=== PATIENT | male | born 1960 | race Caucasian/White ===

== ENCOUNTER 2018-03-26 08:58 | Observation (INO) ==
[2018-03-26] MEDS ORDERED: Td (TENIVAC) Vaccine 0.5 ML VIAL IM ONE (09:21)
[2018-03-26] MEDS ORDERED: Ampicillin/Sulbactam 3,000 MG in D5% in Water (Mini-Bag+) 100 ML IVPB ONE (09:21)
[2018-03-26] MEDS ORDERED: Vancomycin 1,000 MG VIAL IVPB ONE (09:21)
[2018-03-26] MEDS ORDERED: Ibuprofen 600 MG TABLET PO ONE (09:21)
[2018-03-26 09:55] LABS: Basophils % 0.7 %; Eosinophils # 0.3 K/mcL (0.0-0.6); Eosinophils % 4.5 %; Hematocrit 38.3 % (37.5-50.1); Hemoglobin 13.6 g/dL (12.9-16.9); Immature Granulocytes % 0.5 % (0-4); Lymphocytes # 1.3 K/mcL (0.6-4.6); Lymphocytes % 22.4 %; Mean Corpuscular HGB Conc 35.5 g/dL (31.6-35.5); Mean Corpuscular Hemoglobin 32.5 pg (28.0-33.3); Mean Corpuscular Volume 91.6 fL (83.0-100.0); Mean Platelet Volume 8.9 fL (9.4-12.4); Monocytes # 0.7 K/mcL (0.0-1.3); Monocytes % 11.7 %; Neutrophils # 3.4 K/mcL (1.6-8.9); Platelet Count 154 K/mcL (140-400); Red Blood Count 4.18 M/mcL (4.19-5.50); Red Cell Distribution Width 13.1 % (11.5-14.5); Segmented Neutrophils % 60.2 %
[2018-03-26] MEDS ORDERED: Vancomycin 1,500 MG in D5% in Water 250 ML IVPB ONE (10:00)
--- NOTE | 2018-03-26 10:03 | Emergency Department Note ---
Disposition Clinical Impression: Cellulitis Qualifiers: Site of cellulitis: extremity Site of cellulitis of extremity: lower extremity Laterality: left Qualified Code(s): L03.116 - Cellulitis of left lower limb Disposition: Admitted As Inpatient Condition: Undetermined Referrals: Ant Reyna MD [Primary Care Provider] - Forms: ED Satisfaction Letter Time of Disposition: 10:40 (accepted by Dr Arambula) Skin/Abscess/FB HPI Chief complaint: ED Skin/Abscess/Foreign Body Stated complaint: WOUND LT LEG S/P SURGERY Source: patient Limitations: no limitations HPI Narrative: Patient is a pleasant 57-year-old male with past medical history significant for HTN, PAD, CAD, bilateral lower extremities claudication, Dyslipidemia, tobacco use and COPD who is presenting to [facility] Emergency Room with a chief complaint off progressive left lower extremities wound. Patient states that he was injured about a month ago when he bumped his leg in the bed and since then he has unhealed wound. He was seen by vascular at [facility] on March 17 and had angioplasty. Today patient is presenting because he is complaining of progressive pain and that the wound open wound is leaking serous anginous fluid with pus. He states that the wound is getting worse. Patient denies any fever, chills or night sweats. Pt also denies any eye pain or visual disturbances. There is no sore throat, nasal drainages or facial congestion. There is no chest pain, palpitations or racing heart. Pt also denies any shortness of breath, cough or chest congestion. There is no abdominal pain, nausea, vomiting or diarrhea. There is no urgency, frequency or dysuria. Patient also denies any rash, edema or pruritus. There is no neurological manifestations, no headache, no vertigo or weakness. The patient also denies any anxiety, depression, hallucinations and has no homicidal or suicidal ideations. There is no polyuria, polydipsia or recent weight change. Review of other systems is otherwise negative except above. Pt Subjective Complaint: lesion Onset (ago): month(s) Tetanus Up to Date: unsure Location: LLE Severity: severe Severity scale (1-10): 10 Quality: sharp Consistency: Worsening Improves with: none Worsens with: movement Home Medications Medication Instructions Recorded Confirmed Albuterol Sulfate [Proair Hfa] 2 puff IH Q4H PRN 01/06/17 03/26/18 Gabapentin [Neurontin] 300 mg PO TID 01/06/17 03/26/18 Labetalol HCl 200 mg PO BID 01/06/17 03/26/18 Lisinopril-HCTZ 20-12.5 [Prinzide 1 each PO BID 01/06/17 03/26/18 20-12.5] Budesonide/Formoterol 160/4.5 2 puff IH BIDR 03/17/18 03/26/18 [Symbicort 160/4.5] Previous Rx's Medication Instructions Recorded Clopidogrel [Plavix] 75 mg PO DAILY #30 tablet 03/17/18 Allergies Allergy/AdvReac Type Severity Reaction Status Date / Time No Known Allergies Allergy Verified 03/05/15 09:19 All systems ED: reviewed and negative except as stated. Review of Systems: As Per HPI Constitutional: Denies: fever, chills Eyes: Denies: eye pain, eye discharge ENT ED: Denies: ear pain, throat pain Cardiovascular: Denies: chest pain, palpitations Respiratory: Denies: cough, dyspnea Gastrointestinal: Denies: abdominal pain, nausea Integumentary: Reports: rash, abrasion, lesions Neurological: Denies: headache, weakness Psychiatric: Denies: anxiety, depression Endocrine: Denies: fatigue, heat or cold intolerance Allergic/Immunologic: Denies: facial swelling, urticaria Past Medical History - Past Medical History Medical history: Reports: asthma, COPD, coronary artery disease, hyperlipidemia , hypertension, peripheral artery disease Surgical history: Reports: carotid endarterectomy, hip replacement Psychiatric history: Reports: depression - Social History Smoking Status: Current every day smoker Smokeless Tobacco Status: No Alcohol use: Reports: heavy, recent Drug use: Reports: none Physical Exam - General Limitations: no limitations General appearance: alert, in no apparent distress - Head Head exam: atraumatic, normocephalic, normal inspection - Eye Eye exam: Present: normal appearance, PERRL, EOMI - Expanded Eye Exam Pupils: Left: reactive - ENT ENT exam: normal exam, normal oropharynx, mucous membranes moist - Expanded ENT Exam External ear exam: Present: normal external inspection Mouth exam: Present: normal external inspection Teeth exam: Present: normal inspection Throat exam: Present: normal inspection - Neck Neck exam: Present: normal inspection, full ROM, trachea midline - Chest Chest inspection: Present: normal inspection, symmetric chest wall rise - Respiratory Respiratory exam: Present: normal lung sounds bilaterally - Cardiovascular Cardiovascular exam: Present: regular rate, normal rhythm, normal heart sounds - Abdominal Exam Abdominal exam: Present: soft, Non-Tender. Absent: tenderness, distention, guarding, rebound, rigidity - Extremities Exam Extremities exam: Present: normal inspection, full ROM. Absent: tenderness, pedal edema - Expanded Upper Extremity Exam Shoulder exam: Present: normal inspection, full ROM Arm exam: Present: normal inspection, full ROM Elbow exam: Present: normal inspection, full ROM Forearm/Wrist exam: Present: normal inspection, full ROM Hand exam: Present: normal inspection, full ROM Vascular exam: Normal: capillary refill, radial pulse - Expanded Lower Extremity Exam Hip/Pelvis exam: Present: normal inspection, full ROM Upper leg exam: Present: normal inspection, full ROM Knee exam: Present: normal inspection, full ROM, tenderness Lower leg exam: Present: normal inspection, full ROM, other (There is a large open wound with loss of dermis and epidermis, with serosanguis fluid and very tender erythema surrounding the wound Wound is about 10x10 inches) Ankle exam: Present: normal inspection, full ROM Foot/toe exam: Present: normal inspection, full ROM Neurovascular/Tendon exam: Absent: motor deficit, sensory deficit, tendon deficit - Back Exam Back exam: Present: normal inspection, full ROM. Absent: tenderness - Neurological Exam Neurological exam: Present: alert, oriented X3 - Expanded Neurological Exam Patient oriented to: Present: person, place, time Coma Scale Eye Opening: Spontaneous Coma Scale Motor Response: Obeys Commands Coma Scale Verbal Response: Oriented Coma Scale Total: 15 - Psychiatric Psychiatric exam: Present: normal affect, normal mood - Skin Skin exam: Present: warm, dry, intact, normal color Course Vital Signs Temperature 97.8 F 03/26/18 09:02 Pulse Rate 73 03/26/18 09:02 Respiratory Rate 16 03/26/18 09:02 Blood Pressure 117/63 03/26/18 09:02 O2 Sat by Pulse Oximetry 98 03/26/18 09:02 Temperature 97.8 F 03/26/18 09:02 Pulse Rate 73 03/26/18 09:02 Respiratory Rate 16 03/26/18 09:02 Blood Pressure 117/63 03/26/18 09:02 O2 Sat by Pulse Oximetry 98 03/26/18 09:02 Oxygen Delivery Oxygen Delivery Room Air Skin/Abscess/Foreign Body - MDM Narrative Medical decision making narrative: D/C with Dr De Vascular surgeon who has had a successful angioplasty and it has no relationship to his current cellulites. He should f/u with Dr dawson after discharge - Differential Diagnosis Likely: cellulitis - Medical Records Medical records reviewed: Yes I reviewed the patient's medical records. - Lab Data Lab results reviewed: Yes I reviewed the patient's lab results. Result diagrams: 03/26/18 09:47 03/26/18 09:47 Lab Results 03/26/18 03/26/18 Range/Units 09:47 09:47 WBC 5.7 (4.3-11.1) K/mcL RBC 4.18 L (4.19-5.50) M/mcL Hgb 13.6 (12.9-16.9) g/dL Hct 38.3 (37.5-50.1) % MCV 91.6 (83.0-100.0) fL MCH 32.5 (28.0-33.3) pg MCHC 35.5 (31.6-35.5) g/dL RDW 13.1 (11.5-14.5) % Plt Count 154 (140-400) K/mcL MPV 8.9 L (9.4-12.4) fL Immature Gran % 0.5 (0-4) % Seg Neutrophils % 60.2 % Lymphocytes % 22.4 % Monocytes % 11.7 % Eosinophils % 4.5 % Basophils % 0.7 % Neutrophils # 3.4 (1.6-8.9) K/mcL Lymphocytes # 1.3 (0.6-4.6) K/mcL Monocytes # 0.7 (0.0-1.3) K/mcL Eosinophils # 0.3 (0.0-0.6) K/mcL Basophils # 0.0 (0.0-0.2) K/mcL Sodium 125 L (136-145) mEq/L Potassium 3.6 (3.5-5.1) mEq/L Chloride 90 L (98-107) mEq/L Carbon Dioxide 26 (23-29) mEq/L BUN 8 (6-20) mg/dL Creatinine 0.87 (0.70-1.30) mg/dL Est GFR ( Amer) > 60 (> 60) Est GFR (Non-Af Amer) > 60 (> 60) BUN/Creatinine Ratio 9 (6-26) Glucose 93 (70-105) mg/dL Calculated Osmolality 258 L (280-300) Calcium 9.2 (8.6-10.3) mg/dL - Radiology Data Radiology results reviewed: Yes I reviewed the patient's radiology results.
[2018-03-26 10:10] LABS: BUN/Creatinine Ratio 9 (6-26); Blood Urea Nitrogen 8 mg/dL (6-20); Calcium 9.2 mg/dL (8.6-10.3); Carbon Dioxide 26 mEq/L (23-29); Chloride 90 mEq/L (98-107); Glucose 93 mg/dL (70-105); Osmolality,Calculated 258 (280-300); Potassium 3.6 mEq/L (3.5-5.1); Sodium 125 mEq/L (136-145); eGFR For Non-African Americans > 60 (> 60)
[2018-03-26] MEDS ORDERED: Acetaminophen 325 MG TABLET PO PRN ×2 (11:28→14:36)
[2018-03-26] MEDS ORDERED: Naloxone 0.4 MG/ML INJ IVP PRN ×2 (11:28→14:36)
[2018-03-26] MEDS: Gabapentin 300 MG CAPSULE PO SCH ×2 (16:53→20:48)
--- NOTE | 2018-03-26 17:11 | Internal Med History&Physical ---
Date of Encounter: 03/26/18 Time of Encounter: 16:10 Assessment and Plan (1) Cellulitis Current visit: Yes Status: Acute He will be given IV Ancef with lactobacillus. Silvadene will be applied topically to the open wound daily. Qualifiers: Site of cellulitis: extremity Site of cellulitis of extremity: lower extremity Laterality: left Qualified Code(s): L03.116 - Cellulitis of left lower limb (2) Hypertension Current visit: Yes Status: Chronic Continue labetalol but hold lisinopril/HCTZ secondary to hyponatremia. Qualifiers: Hypertension type: essential hypertension Qualified Code(s): I10 - Essential (primary) hypertension (3) PAD (peripheral artery disease) Current visit: Yes Status: Acute Continue Plavix (4) COPD (chronic obstructive pulmonary disease) Current visit: Yes Status: Chronic Continue scheduled Symbicort with albuterol inhaler as needed. Room air oximetry will be checked on 6 minute walk prior to discharge. Qualifiers: COPD type: unspecified COPD Qualified Code(s): J44.9 - Chronic obstructive pulmonary disease, unspecified (5) Hyponatremia Current visit: Yes Status: Acute Acute on chronic. Present on most labs since March 2014. Hold lisinopril/ HCTZ and give normal saline. Recheck labs in a.m. (6) Alcohol use Current visit: Yes Status: Acute Order Xanax prn for withdrawal symptoms. (7) Elevated transaminase level Current visit: Yes Status: Acute LFTs 11/06/2015 were significantly elevated. Recheck in a.m. Internal Medicine - H&P: HPI Chief complaint: Left leg infection Admitted From: Emergency Dept Plans for Post Hospital Care: Home History of present illness: Mr. Moe is a 57 year old male who came to emergency room stating he had worsening pain and drainage from his left lower leg. He reports striking the leg against an object approximately 4-5 weeks ago. About one week later he noticed increasing signs of infection in the leg but did not seek medical attention immediately. He had left SFA angioplasty 03/17/2018 at [facility] for ASPVD with claudication. He states he was told the procedure might help heal the left lower lateral leg wound. He reports no improvement to date. He reports increased pain and serous drainage with decreased ambulation ability in the past week so came to emergency room. He was evaluated and was felt to have cellulitis and hyponatremia. He was admitted to [facility] floor for ongoing care needs. Past Med Surg Social Fam HX - Past Medical History Medical history: asthma, COPD, coronary artery disease, hyperlipidemia, hypertension, peripheral artery disease Additional medical history: NEUROPATHY,ALCOHOLISM, Psychiatric history: depression - Past Surgical History Surgical History: carotid endarterectomy, hip replacement Additional surgical history: LT HIP REPLACEMENT. RT CAROTID ENDARTECTOMY. - Social History Smoking Status: Current every day smoker Smokeless Tobacco Status: No Alcohol use: heavy, recent Drug use: none Internal Medicine - H&P: Meds Albuterol Sulfate [Proair Hfa] 2 puff IH Q4H PRN 01/06/17 [History] Gabapentin [Neurontin] 300 mg PO TID 01/06/17 [History] Labetalol HCl 200 mg PO BID 01/06/17 [History] Lisinopril-HCTZ 20-12.5 [Prinzide 20-12.5] 1 each PO BID 01/06/17 [History] Budesonide/Formoterol 160/4.5 [Symbicort 160/4.5] 2 puff IH BIDR 03/17/18 [ History] Clopidogrel [Plavix] 75 mg PO DAILY #30 tablet 03/17/18 [Rx] 3 Allergy/AdvReac Type Severity Reaction Status Date / Time No Known Allergies Allergy Verified 03/05/15 09:19 All Systems PM: A 10-system review of systems was performed and is negative for pertinent findings except as documented above in the HPI. Review of systems: Gen.: He states his weight has been stable the past few months Cardiovascular: He has history of hypertension and ASPVD with recent angioplasty to left SFA as per history of present illness. He denies GA heart failure DVT or pulmonary embolus. He denies chest pain on his minimal ambulation. Respiratory: He has smoked since age 10 up to 2 packs per day. He has been diagnosed with COPD from PFTs several years ago. He does not have home oxygen. GI: Denies disorders of his liver gallbladder or exocrine pancreas. He reports significant alcohol consumption in the past consuming up to one case of beer per day and rare hard liquor also. : He denies hematuria dysuria or kidney stones Neurologic: He denies large distribution strokes or seizures. Endocrine: He denies diabetes thyroid disease or hyperlipidemia Hematology/oncology: Denies blood disorders cancers or anemia Psychiatric: He denies anxiety depression or other mental health issues [place] skeletal: He reports chronic back pain. He had elective left hip replacement several years ago. He denies gout or other bone joint or muscle disorders. - Constitutional Vitals: Temp Pulse Resp BP Pulse Ox 98.2 F 60 16 165/92 96 03/26/18 14:54 03/26/18 14:54 03/26/18 14:54 03/26/18 14:54 03/26/18 14:54 Exam: Gen.: He is a well-developed well-nourished male lying in bed who appears in no acute distress at present time HEENT: Head is atraumatic and normocephalic. Eyes: EOMI. There is no scleral icterus. Mouth: Mucosa is moist. Neck: Supple and nontender. There is no thyromegaly or adenopathy noted. Heart: Regular without murmurs gallops or ectopics Lungs: No wheezes or crackles are heard. Abdomen: Soft and nontender. No masses or guarding are noted. Extremities: There is no cyanosis edema or clubbing noted. Dorsalis pedis and posttibial pulses are trace palpable bilaterally. He has an ulcerative area maximum diameter approximate 15 cm on the left lateral lower leg. There is a loosely attached eschar approximately 8 cm maximum diameter in the central portion. There is no purulence noted in the granulation bed. Neurologic: Mental status: He is talkative and a fair to good historian. Cranial nerves: Smile is symmetric. Forehead wrinkles bilaterally. Tongue protrudes midline. EOMI. Motor: There is no pronator drift. Cerebellar: Finger to nose is intact bilaterally. Skin: Warm and dry. Internal Med - H&P Results - Labs CBC & Chem 7: 03/26/18 09:47 03/26/18 09:47
[2018-03-26] MEDS: ceFAZolin 1,000 MG in Water for inj. (sterile) 20 ML 10 ML IVP SCH (17:35)
[2018-03-26] MEDS: Silver Sulfadiazine 50 GM TUBE TP SCH (17:35)
[2018-03-26] MEDS: 0.9 % Sodium Chloride w KCl 20 MEQ/1,000 ML MLS IVC SCH (17:36)
[2018-03-26] MEDS: Nicotine 21 MG PATCH.TD24 TD SCH (17:36)
[2018-03-26] MEDS: Thiamine (B-1) 100 MG TABLET PO SCH (17:37)
[2018-03-26] MEDS: *HR* HYDROcodone/Acet 5/325 mg TABLET PO PRN (20:54)
[2018-03-26] MEDS ORDERED: Lisinopril 20 MG TABLET PO SCH (21:00)
[2018-03-26] MEDS: Budesonide/Formoterol 160/4.5 1 PUFF INH IH SCH (22:11)
[2018-03-27] MEDS: ceFAZolin 1,000 MG in Water for inj. (sterile) 20 ML 10 ML IVP SCH ×3 (00:53→17:21)
[2018-03-27] MEDS: 0.9 % Sodium Chloride w KCl 20 MEQ/1,000 ML MLS IVC SCH ×2 (05:54→21:21)
[2018-03-27 06:37] LABS: Basophils % 0.8 %; Eosinophils # 0.3 K/mcL (0.0-0.6); Eosinophils % 5.1 %; Hematocrit 37.1 % (37.5-50.1); Immature Granulocytes % 0.2 % (0-4); Lymphocytes # 1.2 K/mcL (0.6-4.6); Mean Corpuscular Hemoglobin 32.2 pg (28.0-33.3); Mean Corpuscular Volume 91.8 fL (83.0-100.0); Mean Platelet Volume 9.6 fL (9.4-12.4); Monocytes # 0.6 K/mcL (0.0-1.3); Monocytes % 12.1 %; Platelet Count 158 K/mcL (140-400); Red Blood Count 4.04 M/mcL (4.19-5.50); Red Cell Distribution Width 13.1 % (11.5-14.5); Segmented Neutrophils % 57.8 %
[2018-03-27 07:04] LABS: Alanine Aminotransferase 11 Units/L (7-52); Albumin 3.3 g/dL (3.5-5.7); Albumin/Globulin Ratio 1.1 (1.1-2.2); Alkaline Phosphatase 129 Units/L (34-104); Aspartate Amino Transferase 21 Units/L (13-39); BUN/Creatinine Ratio 12 (6-26); Bilirubin,Total 0.5 mg/dL (0.3-1.0); Blood Urea Nitrogen 13 mg/dL (6-20); Carbon Dioxide 26 mEq/L (23-29); Chloride 97 mEq/L (98-107); Globulin 2.9 g/dL (2.4-3.5); Glucose 99 mg/dL (70-105); Osmolality,Calculated 272 (280-300); Potassium 3.7 mEq/L (3.5-5.1); Sodium 131 mEq/L (136-145); Total Protein 6.2 g/dL (6.4-8.9); eGFR For Non-African Americans > 60 (> 60)
[2018-03-27] MEDS: Nicotine 21 MG PATCH.TD24 TD SCH (08:14)
[2018-03-27] MEDS: *HR* HYDROcodone/Acet 5/325 mg TABLET PO PRN ×3 (08:15→21:20)
[2018-03-27] MEDS: Gabapentin 300 MG CAPSULE PO SCH ×3 (08:15→21:20)
[2018-03-27] MEDS: Thiamine (B-1) 100 MG TABLET PO SCH (08:18)
[2018-03-27] MEDS ORDERED: hydroCHLOROthiazide 25 MG TABLET PO SCH (09:00)
[2018-03-27] MEDS: Budesonide/Formoterol 160/4.5 1 PUFF INH IH SCH ×2 (09:08→21:35)
--- NOTE | 2018-03-27 10:10 | Internal Med Progress Note ---
Date of Encounter: 03/27/18 Time of Encounter: 10:04 - Assessment and plan (1) Cellulitis Current Visit: Yes Status: Acute Assessment and plan: March 27. Continue IV Ancef with lactobacillus and Silvadene dressing. Qualifiers: Site of cellulitis: extremity Site of cellulitis of extremity: lower extremity Laterality: left Qualified Code(s): L03.116 - Cellulitis of left lower limb (2) Hypertension Current Visit: Yes Status: Chronic Assessment and plan: March 27. Continue labetalol but hold lisinopril/HCTZ secondary to hyponatremia. Qualifiers: Hypertension type: essential hypertension Qualified Code(s): I10 - Essential (primary) hypertension (3) PAD (peripheral artery disease) Current Visit: Yes Status: Acute Assessment and plan: March 27. Continue Plavix (4) COPD (chronic obstructive pulmonary disease) Current Visit: Yes Status: Chronic Assessment and plan: March 27. Continue Symbicort and albuterol as ordered. Will check room air oximetry on 6 minute walk in a.m. Qualifiers: COPD type: unspecified COPD Qualified Code(s): J44.9 - Chronic obstructive pulmonary disease, unspecified (5) Hyponatremia Current Visit: Yes Status: Acute Assessment and plan: March 27. Sodium improved to 131. Continue IV normal saline and recheck labs in a.m. (6) Alcohol use Current Visit: Yes Status: Acute Assessment and plan: March 27. Continue prn Xanax for withdrawal. (7) Elevated transaminase level Current Visit: Yes Status: Acute Assessment and plan: March 27. Resolved - Subjective Interval history: March 27. He has no new complaints. - Constitutional Vitals: Temp Pulse Resp BP Pulse Ox 98.3 F 63 16 158/83 70 03/27/18 06:45 03/27/18 06:45 03/27/18 09:09 03/27/18 06:45 03/27/18 09:09 Exam: He is resting comfortably in bed and appears in no acute distress. He answers questions appropriately. His left lower leg has dressing in place over the wound bed. I did not unwrap it. I reviewed his medications and lab results. Internal Medicine: Result - Labs CBC & Chem 7: 03/27/18 05:51 03/27/18 05:51 Labs: Short CBC 03/27/18 Range/Units 05:51 WBC 5.1 (4.3-11.1) K/mcL Hgb 13.0 (12.9-16.9) g/dL Hct 37.1 L (37.5-50.1) % Plt Count 158 (140-400) K/mcL Neutrophils # 3.0 (1.6-8.9) K/mcL BMP 03/27/18 05:51 Sodium 131 L Potassium 3.7 Chloride 97 L Carbon Dioxide 26 BUN 13 Creatinine 1.06 Glucose 99 Calcium 9.0 Liver Function 03/27/18 Range/Units 05:51 Total Bilirubin 0.5 (0.3-1.0) mg/dL AST 21 (13-39) Units/L ALT 11 (7-52) Units/L Alkaline Phosphatase 129 H (34-104) Units/L Albumin 3.3 L (3.5-5.7) g/dL Consult Discharge Plan - Plan Referrals: Ant Reyna MD [Primary Care Provider] - 1 week
[2018-03-27] MEDS: Silver Sulfadiazine 50 GM TUBE TP SCH (11:17)
[2018-03-27] MEDS: Lactobacillus 1 EACH CAP.SPRINK PO SCH (21:20)
[2018-03-28] MEDS: ceFAZolin 1,000 MG in Water for inj. (sterile) 20 ML 10 ML IVP SCH ×2 (01:32→08:18)
[2018-03-28] MEDS: *HR* HYDROcodone/Acet 5/325 mg TABLET PO PRN (06:17)
[2018-03-28 06:56] LABS: BUN/Creatinine Ratio 14 (6-26); Blood Urea Nitrogen 11 mg/dL (6-20); Calcium 8.7 mg/dL (8.6-10.3); Carbon Dioxide 25 mEq/L (23-29); Chloride 102 mEq/L (98-107); Glucose 96 mg/dL (70-105); Osmolality,Calculated 275 (280-300); Potassium 4.4 mEq/L (3.5-5.1); Sodium 133 mEq/L (136-145); eGFR For Non-African Americans > 60 (> 60)
[2018-03-28 08:09] VITALS: BP 202/90
[2018-03-28] MEDS: Thiamine (B-1) 100 MG TABLET PO SCH (08:14)
[2018-03-28] MEDS: Lactobacillus 1 EACH CAP.SPRINK PO SCH (08:14)
[2018-03-28] MEDS: Gabapentin 300 MG CAPSULE PO SCH (08:14)
[2018-03-28] MEDS: Nicotine 21 MG PATCH.TD24 TD SCH (08:14)
[2018-03-28] MEDS: Budesonide/Formoterol 160/4.5 1 PUFF INH IH SCH (08:54)
--- NOTE | 2018-03-28 10:22 | Discharge Summary ---
Orders not resulted at time of discharge: Pending orders 03/26/18 17:13 Zinc Routine Date of Encounter: 03/28/18 Time of Encounter: 10:10 - Discharge Diagnosis (1) Cellulitis Priority: Primary Status: Acute Qualifiers: Site of cellulitis: extremity Site of cellulitis of extremity: lower extremity Laterality: left Qualified Code(s): L03.116 - Cellulitis of left lower limb (2) Hypertension Priority: Secondary Status: Chronic Qualifiers: Hypertension type: essential hypertension Qualified Code(s): I10 - Essential (primary) hypertension (3) PAD (peripheral artery disease) Priority: Secondary Status: Acute (4) COPD (chronic obstructive pulmonary disease) Priority: Secondary Status: Chronic Qualifiers: COPD type: unspecified COPD Qualified Code(s): J44.9 - Chronic obstructive pulmonary disease, unspecified (5) Hyponatremia Priority: Secondary Status: Acute (6) Alcohol use Priority: Secondary Status: Acute (7) Elevated transaminase level Priority: Secondary Status: Resolved Hospital course: Mr. Moe is a 57 year old male who came to emergency room stating he had worsening pain and drainage from his left lower leg. He reports striking the leg against an object approximately 4-5 weeks ago. About one week later he noticed increasing signs of infection in the leg but did not seek medical attention immediately. He had left SFA angioplasty 03/17/2018 at [facility] for ASPVD with claudication. He states he was told the procedure might help heal the left lower lateral leg wound. He reports no improvement to date. He reports increased pain and serous drainage with decreased ambulation ability in the past week so came to emergency room. He was evaluated and was felt to have cellulitis and hyponatremia. He was admitted to [facility] for ongoing care needs. Initial orders written by the emergency room physician. I saw him on March 26 and performed a history and physical. He was started on IV Ancef with lactobacillus. Silvadene cream was applied topically to his left leg wound daily. He remained afebrile during his hospital stay. He will continue oral antibiotic and probiotic for 3 days at discharge. Home health nursing will be ordered to continue Silvadene cream with dressing application daily until healed. Lisinopril/HCTZ was discontinued. Hyponatremia improved with sodium level of 133 by day of discharge. Labetalol was continued. He will be started on Cardura at discharge and remain off lisinopril/HCTZ. LFTs returned within normal range. Room air oximetry on 6 minute walk showed satisfactory oxygenation. I encouraged him to become a nonsmoker. He will be discharged home and follow with his PCP within 1 week. - Time Spent with Patient Total time spent providing and/or coordinating discharge services: - Discharge Medications Prescriptions: cephALEXin [Keflex] 500 mg PO Q8H #9 capsule Doxazosin [Cardura] 4 mg PO HS #30 tablet Lactobacillus [Culturelle] 1 each PO BID #6 cap.sprink Silver Sulfadiazine [Silvadene] 1 appl TP DAILY #1 tube Home Medications: Albuterol Sulfate [Proair Hfa] 2 puff IH Q4H PRN 01/06/17 [History] Gabapentin [Neurontin] 300 mg PO TID 01/06/17 [History] Labetalol HCl 200 mg PO BID 01/06/17 [History] Budesonide/Formoterol 160/4.5 [Symbicort 160/4.5] 2 puff IH BIDR 03/17/18 [ History] Clopidogrel [Plavix] 75 mg PO DAILY #30 tablet 03/17/18 [Rx] Doxazosin [Cardura] 4 mg PO HS #30 tablet 03/28/18 [Rx] Lactobacillus [Culturelle] 1 each PO BID #6 cap.sprink 03/28/18 [Rx] Silver Sulfadiazine [Silvadene] 1 appl TP DAILY #1 tube 03/28/18 [Rx] cephALEXin [Keflex] 500 mg PO Q8H #9 capsule 03/28/18 [Rx] Allergies/Adverse Reactions: 3 Allergy/AdvReac Type Severity Reaction Status Date / Time No Known Allergies Allergy Verified 03/05/15 09:19 Date of admission: 03/26/18 11:44 Primary care physician: Ant Reyna MD - Constitutional Vitals: Temp Pulse Resp BP Pulse Ox 98.5 F 64 18 202/90 97 03/28/18 08:07 03/28/18 08:07 03/28/18 08:55 03/28/18 08:07 03/28/18 08:55 - Patient Status Disposition: Home Health Service Condition: Undetermined - Discharge Instructions Follow Up With: Ant Reyna MD [Primary Care Provider] - 1 week - Diet and Activity Activity: resume usual activities as tolerated Diet: regular diet
--- NOTE | 2018-03-28 10:28 | Physician Discharge Referral ---
Home Health/Hosp Referral Info Transfer to: Home Health Attending Provider: Hernando Provider in Charge Post Discharge: PCP (Ant Reyna M.D.) - Diagnosis (1) Cellulitis Priority: Primary Status: Acute (2) Hypertension Priority: Secondary Status: Chronic (3) PAD (peripheral artery disease) Priority: Secondary Status: Acute (4) COPD (chronic obstructive pulmonary disease) Priority: Secondary Status: Chronic (5) Hyponatremia Priority: Secondary Status: Acute (6) Alcohol use Priority: Secondary Status: Acute (7) Elevated transaminase level Priority: Secondary Status: Resolved - Respiratory Orders Smoking Cessation: Smoking cessation has been advised. For more information, call the [employer] Tobacco Quit Line at 7-936-TWOR-NOW. - Dressing/Wound Care Site: Left lower leg Type of Dressing/Treatments w/Frequency: Apply Silvadene cream and gauze wrap daily until healed. - Diet/Nutrition Diet/Nutrition Orders: Regular - Activity Activity Orders: Ambulate - Services Needed Following services are medically necessary services: Nursing, Home Health Aide, Physical Therapy, Occupational Therapy - Transfer Medications Prescriptions: cephALEXin [Keflex] 500 mg PO Q8H #9 capsule Doxazosin [Cardura] 4 mg PO HS #30 tablet Lactobacillus [Culturelle] 1 each PO BID #6 cap.sprink Silver Sulfadiazine [Silvadene] 1 appl TP DAILY #1 tube Home Medications: Albuterol Sulfate [Proair Hfa] 2 puff IH Q4H PRN 01/06/17 [History] Gabapentin [Neurontin] 300 mg PO TID 01/06/17 [History] Labetalol HCl 200 mg PO BID 01/06/17 [History] Budesonide/Formoterol 160/4.5 [Symbicort 160/4.5] 2 puff IH BIDR 03/17/18 [ History] Clopidogrel [Plavix] 75 mg PO DAILY #30 tablet 03/17/18 [Rx] Doxazosin [Cardura] 4 mg PO HS #30 tablet 03/28/18 [Rx] Lactobacillus [Culturelle] 1 each PO BID #6 cap.sprink 03/28/18 [Rx] Silver Sulfadiazine [Silvadene] 1 appl TP DAILY #1 tube 03/28/18 [Rx] cephALEXin [Keflex] 500 mg PO Q8H #9 capsule 09/16/18 [Rx] Allergies/Adverse Reactions: 3 Allergy/AdvReac Type Severity Reaction Status Date / Time No Known Allergies Allergy Verified 03/05/15 09:19 Certification: Further, I certify that my clinical findings support that this patient is homebound (i.e. absences from home require considerable and taxing effort and are for medical reasons or [employer] or infrequently or short duration when for other reasons) because: Homebound Reason: Leaving home requires considerable and taxing effort due to condition (Leg pain cellulitis and ulceration.) Attestation: My signature below is to certify that this patient is under my care and that I, or nurse practitioner, or a physician's delivery driver assistant working with me, has a face-to -face encounter with this patient.
[2018-03-28] MEDS: Silver Sulfadiazine 50 GM TUBE TP SCH (10:49)
[2018-03-28] MEDS: 0.9 % Sodium Chloride w KCl 20 MEQ/1,000 ML MLS IVC SCH (10:49)
== END 2018-03-28 11:02 | disposition home health service (06) ==
LOC: INPPIK 08:58 → EMEROOPIK 08:58 → INPPIK 12:00
PROVIDERS: ADMIT Internal Medicine; ATTEND Internal Medicine